=== PATIENT | female | born 1965 | race Hispanic/Latino ===

== ENCOUNTER 2017-03-06 12:51 | Emergency (ER) | payer SELFPAY | END 2017-03-06 12:52 | LOC: ED 12:51 | DX: R51 Headache (principal); V89.2XXA Person injured in unspecified motor-vehicle accident, traffic, initial encounter; Y93.89 Activity, other specified; Y99.9 Unspecified external cause status; Y92.410 Unspecified street and highway as the place of occurrence of the external cause; Z53.21 Procedure and treatment not carried out due to patient leaving prior to being seen by health care provider ==